=== PATIENT | male | born 1975 | race Caucasian/White ===

== ENCOUNTER 2016-10-29 12:28 | Emergency (ER) | payer BC ==
--- NOTE | 2016-10-29 13:43 | ER Document Report ---
HPI - HPI Patient complains to provider of: cough, chest hurts with cough Onset: Other - 4 days Pain Level: 4 Context: Patient presents emergency department with complaints of cough chest hurting when he coughs. Reports he is coughing up a regular sputum with no color. Denies fever vomiting diarrhea. Reports cough for the past 4 days. Denies chest pain. Denies shortness of breath. Reports he can walk and talk without any problems. Denies history of coronary artery disease. Associated Symptoms: Productive cough Exacerbated by: Coughing Relieved by: Denies Similar symptoms previously: No Recently seen / treated by doctor: No - DERM Skin Color: Normal Past Medical History - General Information source: Patient - Social History Smoking Status: Current Every Day Smoker Cigarette use (# per day): Yes Frequency of alcohol use: Social Drug Abuse: None Occupation: construction Family History: None, Reviewed & Not Pertinent, Other - father/mother due to ETOH abuse Patient has suicidal ideation: No Patient has homicidal ideation: No - Medical History Medical History: Negative Renal/ Medical History: Denies: Hx Peritoneal Dialysis Past Surgical History: Reports: Hx Tonsillectomy - Immunizations Immunizations up to date: Yes Hx Diphtheria, Pertussis, Tetanus Vaccination: Yes - 11/01/2007 Vertical Provider Document - CONSTITUTIONAL Agree With Documented VS: Yes Exam Limitations: No Limitations General Appearance: WD/WN, No Apparent Distress - INFECTION CONTROL TRAVEL OUTSIDE OF THE [place] IN LAST 30 DAYS: No - HEENT HEENT: Atraumatic, Normocephalic. negative: Conjuctival Injection, Pharyngeal Exudate, Pharyngeal Erythema - NECK Neck: Normal Inspection, Supple. negative: Lymphadenopathy-Left, Lymphadenopathy-Right - RESPIRATORY Respiratory: Breath Sounds Normal, No Respiratory Distress, Chest Non-Tender O2 Sat by Pulse Oximetry: 99 - CARDIOVASCULAR Cardiovascular: Regular Rate, Regular Rhythm - GI/ABDOMEN Gastrointestinal: Abdomen Soft, Abdomen Non-Tender - MUSCULOSKELETAL/EXTREMETIES Musculoskeletal/Extremeties: MOHAMUD SPIVEY - NEURO Level of Consciousness: Awake, Alert, Appropriate Motor/Sensory: No Motor Deficit - DERM Integumentary: Warm, Dry Course - Re-evaluation Re-evalutation: 10/29/16 14:19 Patient instructed on negative x-ray instructed on the importance to quit smoking follow-up with primary care provider. He verbalized understanding to all instructions - Vital Signs Vital signs: Temp Pulse Resp BP Pulse Ox 98.2 F 89 18 126/88 H 99 10/29/16 12:45 10/29/16 12:45 10/29/16 12:45 10/29/16 12:45 10/29/16 12:45 - Diagnostic Test Radiology reviewed: Image reviewed, Reports reviewed - Diagnostic report text EXAM DESCRIPTION: CHEST PA/LAT COMPLETED DATE/TIME: 10/29/2016 1:52 pm REASON FOR STUDY: chest hurts with cough COMPARISON: None. EXAM PARAMETERS: NUMBER OF VIEWS: two views TECHNIQUE: Digital Frontal and Lateral radiographic views of the chest acquired. RADIATION DOSE: NA LIMITATIONS: none FINDINGS: LUNGS AND PLEURA: No opacities, masses or pneumothorax. No pleural effusion. MEDIASTINUM AND HILAR STRUCTURES: No masses or contour abnormalities. HEART AND VASCULAR STRUCTURES: Heart normal size. No evidence for failure. BONES: No acute findings. HARDWARE: None in the chest. OTHER: No other significant finding. IMPRESSION: NO SIGNIFICANT RADIOGRAPHIC FINDING IN THE CHEST Discharge - Discharge Clinical Impression: Cough, Elevated blood pressure reading Condition: Stable Disposition: HOME, SELF-CARE Instructions: Tessalon Perles ([facility]), Stop Smoking ([facility]) Additional Instructions: *You have been evaluated for cough *Quit smoking *Increase fluid intake as discussed *Take medication as prescribed *Monitor your temperature, take Tylenol as indicated *Follow up with a primary care provider in one week for recheck *Return to ED for worsening condition, changes, needs Prescriptions: Benzonatate [Tessalon Perles 100 mg Capsule] 100 mg PO ASDIR PRN #40 capsule PRN Reason: Forms: Elevated Blood Pressure, Smoking Cessation Education, Return to Work
--- NOTE | 2016-10-29 14:09 | RADIOLOGY REPORT (SQ) ---
EXAM DESCRIPTION: CHEST PA/LAT COMPLETED DATE/TIME: 10/29/2016 1:52 pm REASON FOR STUDY: chest hurts with cough COMPARISON: None. EXAM PARAMETERS: NUMBER OF VIEWS: two views TECHNIQUE: Digital Frontal and Lateral radiographic views of the chest acquired. RADIATION DOSE: NA LIMITATIONS: none FINDINGS: LUNGS AND PLEURA: No opacities, masses or pneumothorax. No pleural effusion. MEDIASTINUM AND HILAR STRUCTURES: No masses or contour abnormalities. HEART AND VASCULAR STRUCTURES: Heart normal size. No evidence for failure. BONES: No acute findings. HARDWARE: None in the chest. OTHER: No other significant finding. IMPRESSION: NO SIGNIFICANT RADIOGRAPHIC FINDING IN THE CHEST. TECHNICAL DOCUMENTATION: JOB ID: [id number] [employer]- All Rights Reserved
[2016-10-29 14:32] VITALS: BP 125/80
--- NOTE | 2016-10-31 10:00 | EKG REPORT ---
SEVERITY:- ABNORMAL ECG - SINUS RHYTHM ABNRM R PROG, CONSIDER ASMI OR LEAD PLACEMENT : Confirmed by: Jaymie Dooley 31-Oct-2016 10:00:00
== END 2016-10-29 14:32 | disposition home or self-care (01) ==
LOC: ER 12:28
DX: R05 Cough (principal); R03.0 Elevated blood-pressure reading, without diagnosis of hypertension; R07.81 Pleurodynia; F17.210 Nicotine dependence, cigarettes, uncomplicated
CPT/HCPCS: 71020; 93005; 93010; 99283

== ENCOUNTER → 2017-07-22 | Outpatient (CLI) | payer BC ==
--- NOTE | 2017-07-22 16:26 | RADIOLOGY REPORT (SQ) ---
EXAM DESCRIPTION: FOOT RIGHT COMPLETE COMPLETED DATE/TIME: 07/22/2017 4:16 pm REASON FOR STUDY: PAIN IN RIGHT FOOT M79.671 PAIN IN RIGHT FOOT COMPARISON: None. NUMBER OF VIEWS: Three views. TECHNIQUE: AP, lateral and oblique radiographic images acquired of the right foot. LIMITATIONS: None. FINDINGS: MINERALIZATION: Normal. BONES: No acute fracture or dislocation. No worrisome bone lesions. JOINTS: No effusions. Mild degenerative narrowing 1st metatarsophalangeal joint. SOFT TISSUES: 2 small metallic linear foreign bodies again noted adjacent and ventral to the head of the 1st metatarsal. OTHER: Moderate-sized heel spur. IMPRESSION: Moderate-sized heel spur. Metallic foreign bodies again noted. See above discussion. Mild degenerative change 1st metatarsophalangeal joint. TECHNICAL DOCUMENTATION: JOB ID: [id number] [employer]- All Rights Reserved
== END ==
LOC: OD 16:03
PROVIDERS: ATTEND Family Medicine
DX: M79.671 Pain in right foot (principal); M77.31 Calcaneal spur, right foot

== ENCOUNTER 2018-03-01 12:46 | Emergency (ER) | payer BC ==
[2018-03-01] MEDS ORDERED: HYDROCODONE/ACETAMINOPHEN 5-325 MG TABLET PO ONE (14:26)
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
--- NOTE | 2018-03-01 15:21 | RADIOLOGY REPORT (SQ) ---
EXAM DESCRIPTION: SHOULDER RIGHT 2 OR MORE VIEWS COMPLETED DATE/TIME: 03/01/2018 2:38 pm REASON FOR STUDY: fell off ladder COMPARISON: None. NUMBER OF VIEWS: Three views right shoulder LIMITATIONS: None. FINDINGS: There is no acute or significant bone, joint or soft tissue abnormality. OTHER: No other significant finding. IMPRESSION: NORMAL STUDY. TECHNICAL DOCUMENTATION: JOB ID: [id number] Reading location - IP/workstation name: [email or web address]
[2018-03-01 15:23] VITALS: BP 142/85
== END 2018-03-01 15:33 | disposition home or self-care (01) ==
LOC: ER 12:46
DX: S46.811A Strain of other muscles, fascia and tendons at shoulder and upper arm level, right arm, initial encounter (principal); M25.511 Pain in right shoulder; W11.XXXA Fall on and from ladder, initial encounter; Y93.89 Activity, other specified; Y99.2 Volunteer activity; F17.210 Nicotine dependence, cigarettes, uncomplicated
CPT/HCPCS: 99283; 73030; L3650

== ENCOUNTER → 2018-04-28 | Outpatient (CLI) | payer BC ==
--- NOTE | 2018-04-28 19:45 | XCELERA REPORT ---
[address] [address] Transthoracic Echocardiogram Report Name: JASKARAN VALENTIN Age: 42 yrs Gender: Male : 1975 Patient Status: Preadmit Patient Location: [facility] Study Date: 04/28/2018 03:03 PM Height: 72 in Weight: 200 lb BSA: 2.1 m2 Reason For Study: MURMUR Ordering Physician: TAMAR PEREZ Performed By: Jerome Newberry Interpretation Summary No valvular abnormality to explain heart murmur. Normal LVEF with no LVDD. Mild hypokinesis of the IVS no impairment on the LVEF 60-65%, no LV dilatation. No elev. RV systolic pressure. MMode/2D Measurements & Calculations RVDd: 3.1 cm LVIDd: 4.9 cm FS: 31.9 % Ao root diam: 3.1 cm IVSd: 0.81 cm LVIDs: 3.3 cm EDV(Teich): 113.0 ml LVPWd: 0.84 cm ESV(Teich): 45.4 ml Ao root area: 7.6 cm2 LA dimension: 3.5 cm EF(Teich): 59.8 % Doppler Measurements & Calculations MV E max nolvia: MV P1/2t max nolvia: Ao V2 max: LV V1 max P.1 cm/sec 83.1 cm/sec 119.4 cm/sec 4.3 mmHg MV A max nolvia: MV P1/2t: 65.0 msec Ao max PG: LV V1 max: 63.6 cm/sec MVA(P1/2t): 3.4 cm2 5.7 mmHg 103.3 cm/sec MV E/A: 1.3 MV dec slope: 374.8 cm/sec2 MV dec time: 0.26 sec PA V2 max: PI end-d nolvia: TR max nolvia: MV P1/2t-pr_phl: 104.1 cm/sec 112.8 cm/sec 239.8 cm/sec 65.0 msec PA max PG: TR max P.3 mmHg 23.0 mmHg Left Ventricle The left ventricle is normal in size, thickness and function. There is mild concentric left ventricular hypertrophy. The left ventricular ejection fraction is normal. Doppler measurements suggest normal left ventricular diastolic function. There are regional wall motion abnormalities as specified. There is septal wall mild hypokinesis. There is no thrombus. Right Ventricle The right ventricle is grossly normal size. The right ventricular systolic function is normal. Atria The right atrium is normal. The left atrial size is normal. The interatrial septum is intact with no evidence for an atrial septal defect. Mitral Valve The mitral valve is normal in structure and function. There is no mitral annular calcification. There is no evidence of mitral valve prolapse. There is no mitral valve stenosis. There is no mitral regurgitation noted. Aortic Valve The aortic valve is trileaflet. The aortic valve opens well. There is no aortic valve calcification. There is no aortic valvular vegetation. There is no aortic valve stenosis. No aortic regurgitation is present. Tricuspid Valve The tricuspid is normal in structure and function. There is no tricuspid valve prolapse. There is no tricuspid stenosis. There is a trace to mild amount of tricuspid regurgitation. Doppler findings do not suggest pulmonary hypertension. Pulmonic Valve The pulmonic valve is not well visualized. There is a trace or physiologic amount of pulmonic regurgitation. Great Vessels The aortic root is normal size. Effusions There is no pericardial effusion. I WMSI = 1.33 % Normal = 67 Segments Size X - Cannot 2 - 4 - 1-2 small Interpret 1 - Normal Hypokinetic 3 - AkineticDyskinetic 3-5 moderate 5 - 6-14 large Aneurysmal 15-16 diffuse : TAMAR PEREZ > Ross Saavedra
== END ==
LOC: SP 16:06
PROVIDERS: ATTEND Family Medicine
DX: R01.1 Cardiac murmur, unspecified (principal)
CPT/HCPCS: 93306

== ENCOUNTER 2019-02-27 13:04 | Emergency (ER) | payer SELFPAY ==
[2019-02-27 13:34] VITALS: BP 144/74
--- NOTE | 2019-02-27 14:14 | ER Document Report ---
HPI - HPI Patient complains to provider of: dental pain Time Seen by Provider: 02/27/19 14:13 Onset: Other Onset/Duration: Intermittent, Waxing and waning Quality of pain: Throbbing Severity: Moderate Pain Level: 4 Context: This is a 43-year-old male with the listed past medical history presenting with toothache. Patient states this has been ongoing for about the last few days. Patient describes the pain in the mouth as a 8 out of 10, sharp, aching, is located in the right lower posterior part of the mouth. states he has an apt with his dentist in 5 days and is undergoing full dentures and has already had the top done and they are working on finishing the bottom now. he states keflex is what he usually gets for his dental infections and that works well. he states pcn makes him vomit. he initially said he was only taking motrin for the pain however after reviewing the [place] drug database with him he then admitted to running out early of the percocet 7.5mg #90 he was prescribed 19 days ago which was a 30 day supply. Patient denies any difficulty swallowing. Patient denies any difficulty handling secretions. Patient states normal appetite and fluid intake. Patient denies any fever or chills. Patient denies any radiation of pain into the neck. Patient states that chewing, and hot and cold make the pain worse. Palpation makes pain worse and rest makes it better. Patient denies any difficulty breathing. Patient denies all complaints at this time. Patient is here for pain control. Exacerbated by: Movement, Food Relieved by: Remaining still Similar symptoms previously: Yes Recently seen / treated by doctor: Yes - ROS Systems Reviewed and Negative: Yes All other systems reviewed and negative - To include 10 systems, unless mentioned in the hpi. Past Medical History - General Information source: Patient - Social History Smoking Status: Current Every Day Smoker Chew tobacco use (# tins/day): No Frequency of alcohol use: Social Drug Abuse: None Family History: None, Reviewed & Not Pertinent, Other - father/mother due to ETOH abuse Patient has suicidal ideation: No Patient has homicidal ideation: No Endocrine Medical History: Denies: Hx Diabetes Mellitus Type 1, Hx Diabetes Mellitus Type 2 Renal/ Medical History: Denies: Hx Peritoneal Dialysis Past Surgical History: Reports: Hx Tonsillectomy - Immunizations Immunizations up to date: Yes Hx Diphtheria, Pertussis, Tetanus Vaccination: Yes - 11/01/2007 Vertical Provider Document - CONSTITUTIONAL Agree With Documented VS: Yes Exam Limitations: No Limitations Notes: GENERAL_APPEARANCE: well_nourished, alert, cooperative, no_acute_distress,mild_obvious_discomfort. pleasant, young white male, speaking in full sentences, nontoxic, in no sign of resp distress, easily sitting up, appears uncomfortable but not toxic. VITALS:reviewed, see vital signs table. HEAD: normocephalic, atraumatic. no swelling or ttp EARS: normal TMs and canals bilat. no sign of mastoiditis. no drainage or bleeding. no hemotympanum EYES: PERRL, EOMI, conjunctiva_clear. NOSE: no_nasal_discharge. MOUTH: no decreased moisture. there are multiple dental caries noted. Teeth # 27-30 are eroded to the gumline and broken, darkened, and are extremely carious. There mild no localized inflammation. There is no buccal swelling. there is tenderness to palpation over the noted tooth of concern. Uvula is midline. There is no trismus. There is no TMJ ttp/clicking produced. no tenderness over the sternocleidomastoid muscles. There is no tenderness over the thyroid cartilage. There is no submandibular hardness. no sign of ludwigs or drainable dental abscess. THROAT: no pharyngeal erythema. s/p remote tonsilectomy, no_airwa y_obstruction. no ulcers/lesions/thrush. no tongue/lip/facial swelling. no drooling, tripoding, voice change or stridor NECK: supple, no_neck_tenderness, no lymphadenopathy. full rom and full stren gth. no meningeal signs. LUNGS: no_wheezing, ctab, (-)accessory muscle use, good air exchange bilateral. HEART: normal_rate, normal_rhythm, EXTREMITIES: strength 5/5 in all extremities, good pulses in all extremities, no swelling\tenderness in the extremities, no edema. full rom. normal gait. brisk cap refill. good hand manager of housekeeping. NEURO: motor and sensation intact to light touch, cranial nerves 2-12 intact, SKIN: warm, dry, good_color, no_rash. no grossly visible overlying skin changes or signs of trauma. MENTAL_STATUS: speech_clear, oriented_X_3 , normal_affect, responds_appropriately to questions. - INFECTION CONTROL TRAVEL OUTSIDE OF THE [place] IN LAST 30 DAYS: No Course - Re-evaluation Re-evalutation: 02/27/19 14:17 Pt here for dental pain. advised to f/u with dentist in 1-2 days. he has an apt with his dentist in 5 days he tells me as he is in the process of getting full dentures. he has since ran out of his percocet 7.5mg around 11 days early. this is concerning for drug seeking behavior. he was given a dose of pain meds here and abx and will dc with only keflex as he is pcn allergic and he states keflex is what his dentist usually gives him when he has a dental infection and it works well. advised he needs to call his prescriber, dr hernandez, in regards to further pain meds and possible medication adjustment if his current regimen isn't controlling his pain. return for any worsening symptoms. vss. well appearing. satting well on ra. neurononfocal. pt understands and agrees to plan. afebrile On reexam, pt improved with tx listed. remained stable. nontoxic. well appearing. pain controlled. tolerating po. requesting to go home. Upon review of the [place] drug database he receives monthly and sometimes twice monthly Percocet 7.5 mg, with the last being for #90 on 02/08/2019 for Percocet 7.5 mg a prescribed [address] Hernandez and he also received 90 on 01/22/2019 as well. Documentation achieved through voice recording which may lead to some occasional accidental typographical errors. Extensive efforts have been made to proof read documentation to make sure these are the least as possible. 02/27/19 14:55 Category Date Time Status Cephalexin Monohydrate [Keflex 500 mg Capsule] Med 02/27/19 14:52 Once 500 mg PO NOW ONE Oxycodone HCl/Acetaminophen [Percocet 5-325 mg Tablet] Med 02/27/19 14:52 Once 2 tab PO NOW ONE 02/27/19 15:16 - Vital Signs Vital signs: Temp Pulse Resp BP Pulse Ox 98.1 F 105 H 20 144/74 H 99 02/27/19 13:33 02/27/19 13:33 02/27/19 13:33 02/27/19 13:33 02/27/19 13:33 02/27/19 15:16 Temp Pulse Resp BP Pulse Ox 02/27/19 13:33 98.1 F 105 H 20 144/74 H 99 Discharge - Discharge Clinical Impression: Pain, dental, Chronic narcotic use Condition: Good Disposition: HOME, SELF-CARE Instructions: [facility], Toothache ([facility]) Additional Instructions: Follow-up with your dentist on as scheduled in 5 days. Return for any worsening symptoms. tylenol or motrin as needed for any pain or fever if not allergic. take the medication as prescribed. If your current regimen of Percocet is not controlling your pain you need to contact your prescriber for possible adjustment of your medication. Prescriptions: Cephalexin Monohydrate [Keflex 500 mg Capsule] 500 mg PO Q6H 7 Days #28 capsule Referrals: TAMAR HERNANDEZ DO [Primary Care Provider] - Follow up in 3-5 days
[2019-02-27] MEDS ORDERED: OXYCODONE-ACETAMINOPHEN 5-325 MG TABLET PO ONE (14:52)
[2019-02-27] MEDS ORDERED: CEPHALEXIN 500 MG CAPSULE PO ONE (14:52)
== END 2019-02-27 15:07 | disposition home or self-care (01) ==
LOC: ER 13:04
DX: K02.9 Dental caries, unspecified (principal); K03.2 Erosion of teeth; K08.89 Other specified disorders of teeth and supporting structures; Z79.891 Long term (current) use of opiate analgesic; F17.200 Nicotine dependence, unspecified, uncomplicated; Z88.0 Allergy status to penicillin
CPT/HCPCS: 99282